=== PATIENT | female | born 1995 | race Caucasian/White ===

== ENCOUNTER 2017-10-16 13:11 | Inpatient (IN) ==
[2017-10-16] MEDS ORDERED: NALOXONE 0.4 MG/1 ML VIAL IVP PRN (17:58)
[2017-10-16] MEDS ORDERED: Nalbuphine Inj 20 MG/ML Ampule IVP PRN (17:58)
[2017-10-16] MEDS ORDERED: LIDOCAINE HCL 2 % 10 ML JELLY URO-JECT TOPICAL PRN (17:58)
[2017-10-16] MEDS ORDERED: CITRIC ACID/SODIUM CITRATE 30 ML CUP PO PRN (17:58)
[2017-10-16] MEDS ORDERED: Metoclopramide Inj 10 MG/2 ML VIAL IV PRN (17:58)
[2017-10-16] MEDS ORDERED: BUTORPHANOL TARTRATE 2 MG/1 ML VIAL IVP PRN (17:58)
[2017-10-16] MEDS ORDERED: METHYLERGONOVINE MALEATE 0.2 MG/1 ML VIAL IM PRN (17:58)
[2017-10-16] MEDS ORDERED: ePHEDrine Inj 5 MG in Normal Saline Flush 1 ML IVP PRN (17:58)
[2017-10-16] MEDS ORDERED: MISOPROSTOL 200 MCG TABLET RECTAL PRN (17:58)
[2017-10-16] MEDS ORDERED: ONDANSETRON 4 MG/2 ML VIAL IVP PRN (17:58)
[2017-10-16] MEDS ORDERED: CefOXitin Inj 2 GM in Sodium Chloride 0.9% 100 ML IV PRN (17:58)
[2017-10-16] MEDS ORDERED: fentaNYL Inj 100 MCG/2 ML VIAL IV PRN (17:58)
[2017-10-16] MEDS ORDERED: Phenylephrine Inj 50 MCG in Normal Saline Flush 0.5 ML IVP PRN (17:58)
[2017-10-16] MEDS ORDERED: OXYTOCIN 10 UNIT/1 ML IM PRN (17:58)
[2017-10-16] MEDS ORDERED: TERBUTALINE SULFATE 1 MG/1 ML SDV SUBCUT PRN (17:58)
[2017-10-16] MEDS ORDERED: CALCIUM CARBONATE 500 MG (TUMS) CHEWABLE TABLET PO PRN (17:58)
[2017-10-16] MEDS ORDERED: diphenhydrAMINE 50 MG/1 ML VIAL IVP PRN (17:58)
[2017-10-16] MEDS ORDERED: Naloxone Inj 0.01 MG in Normal Saline Flush 1 ML IVP PRN (17:58)
[2017-10-16] MEDS ORDERED: Carboprost Inj 250 MCG/ML AMP IM PRN (17:58)
[2017-10-16] MEDS ORDERED: LIDOCAINE W/ SODIUM BICARB 0.5 ML SYR SUBD PRN (17:58)
[2017-10-16] MEDS ORDERED: FAMOTIDINE 20 MG/2 ML VIAL IVP PRN ×2 (17:58)
[2017-10-16] MEDS ORDERED: Lidocaine 1% 10 MG/ML - 20 ML VIAL SUBCUT PRN (17:58)
[2017-10-16] MEDS ORDERED: Oxytocin 20 Units + LR 20 UNIT/1,000 ML BAG IV SCH ×2 (18:00→18:30)
[2017-10-16 18:34] LABS: Hematocrit [HCT] 36.8 % (37.0-47.0); Hemoglobin [HGB] 12.8 g/dL (12.0-16.0); MEAN CORPUSCULAR HEMOGLOBIN 29.2 PG (27-31); MEAN CORPUSCULAR HGB CONC 34.8 g/dL (33-37); MEAN PLATELET VOLUME 11.8 FL (7.4-12.2); RED BLOOD COUNT 4.38 10^6/uL (4.20-5.40)
[2017-10-16] MEDS: Lactated Ringers-OB Dept 1,000 ML PRIMARY IV SCH (18:51)
[2017-10-16] MEDS: ACETAMINOPHEN 325 MG TABLET PO PRN (20:34)
[2017-10-17] MEDS: Lactated Ringers-OB Dept 1,000 ML PRIMARY IV SCH ×2 (03:54→10:30)
[2017-10-17] MEDS: ACETAMINOPHEN 325 MG TABLET PO PRN (05:16)
--- NOTE | 2017-10-17 07:34 | OB.PROGRES ---
Interval History: The patient is a 22-year-old at 40 weeks gestation today who was admitted last night for induction of labor or augmentation of contractions. Please see my note below from earlier in the day yesterday. Overnight, the patient can feel some contractions nothing painful. The patient states that she has had headaches for 2 days that do go resolve. The patient thinks that it is sinus congestion. The patient states that about 3 months ago she had a similar headache intermittently for several days when she had an upper respiratory infection and sinus congestion. The patient had a headache yesterday when she presented to labor and delivery at [facility] with Tylenol. Last night she had a headache again which resolved with Tylenol but overnight the headache returned. Therefore, she did not sleep as well as she had hoped. Subjective: The patient is a 22-year-old at 39-6/7 weeks who called and spoke to the office nurse this morning and described perhaps early labor and just not feeling well. No gush of fluid. Positive movement. No bleeding. Occasional contractions. The patient was asked to go to labor and delivery. The patient states that she had a headache but drinking water this morning and Tylenol and labor and delivery allowed her headache to resolve completely. No abdominal pain. Some contractions felt. The patient states that her has gone well except for the first trimester when she had a subchorionic hemorrhage and some vaginal bleeding. One -hour Glucola was normal. Group B strep was negative. Past medical history noncontributory. No hypertension, no diabetes, no asthma. Past surgical history noncontributory for abdominal surgeries. Patient is allergic to penicillin. No tobacco, no alcohol, no drugs. Objective: Nontoxic appearing Abdomen is soft and nontender without guarding or rebound. Gravid. Cervix was 2-3/60/-2 cephalic. Membranes swept gently. Minimal blood on gloved fingers after completing this. Extremity with 1+ edema bilaterally. Labs with platelets 129,000. H&H 12 and 35.8. Renal function and liver function tests were normal. Category 1 heart rate tracing. Contractions about every 6-8 minutes. Assessment: IUP 39-6/7 weeks with gestational thrombocytopenia. Late limits last drawn about 2 months ago were 168,000 Latent labor The patient has had a cervical change from last week to this week from 1 cm to 2-3 cm. group B strep negative Patient is Rh- and did receive RhoGAM Blood pressure is normal. The patient believes that this baby is probably bigger than her previous child which was born at 38-1/2 weeks gestation Plan: I discussed the patient's mild gestational thrombocytopenia. I discussed that this can occur in . Her blood pressure is normal. Her labs otherwise are normal. I offered the patient admission with augmentation of her contractions with Pitocin. We discussed this at length. The patient stated that she would like this but would also like to consider going into labor spontaneously. I just spoke the patient again in the patient is still considering her options. The patient asked about coming back at around 2030 hrs. or 2100 hrs. after her significant other gets home from work at the [employer]. The nurse and I told the patient that that would be fine. The patient also could be admitted now and we would start the Pitocin now to help ripen the patient's cervix. The patient is currently considering her options. Objective - Cervical Exam Cervical Exam: 60/-2 cephalic [place]: Contractions every 2-4 minutes on 5 milliunits of Pitocin Heart Rate Interpretation Category: Category II (There was one deceleration to the 70s for 1 minute that the nurse thought perhaps was maternal. It is difficult to determine if it was the heart rate or maternal. Otherwise, heart rate accelerations are good.) - Labs CBC and BMP: 10/16/17 18:28 - Vital Signs Last Taken Vital Signs: Vital Signs - Last Taken Temperature 98.5 F 10/17/17 06:15 Pulse Rate 84 10/17/17 06:15 Respiratory Rate 18 10/17/17 06:15 Blood Pressure 124/69 10/17/17 06:15 Pulse Ox 98 10/17/17 06:15 - Additional Details Additional Details: Lungs clear to auscultation Heart regular rate and rhythm Abdomen is gravid and soft and nontender Reflexes are 2+ bilaterally patellar No clonus Assessment and Plan - Assessment / Plan Additional Assessment/Plan Details: Assessment: IUP 40 weeks gestation today. Patient was diagnosed with gestational thrombocytopenia stay with platelets 129,000 which last night on admission were 144,000. The patient had an elevated blood pressure on admission last night but the nurse believed that the patient was very anxious. All other blood pressures since then have been normal. The patient has had a headache for the past 2 days that resolves with Tylenol but then does return. I do not think that the patient has preeclampsia with severe signs or symptoms secondary to the headache since the patient's only blood pressure last night was elevated on admission but every other blood pressure has been normal. The patient did have some anxiety last night. The patient did have negative protein in her urine dip yesterday. Plan: Observe blood pressures very closely Obtain a gestational hypertension panel now Continue Pitocin which is currently at 5 milliunits but we'll continue to increase the Pitocin Consider AROM when the patient gets into a good labor pattern with Pitocin. I will discuss this with the physician on-call today as I will have to hand this patient off to the physician on-call a little later.
[2017-10-17 08:09] LABS: Hematocrit [HCT] 36.7 % (37.0-47.0); Hemoglobin [HGB] 12.6 g/dL (12.0-16.0); MEAN CORPUSCULAR HGB CONC 34.3 g/dL (33-37); MEAN CORPUSCULAR VOLUME 84.4 FL (81-99); MEAN PLATELET VOLUME 11.9 FL (7.4-12.2); RED BLOOD COUNT 4.35 10^6/uL (4.20-5.40)
[2017-10-17 08:27] LABS: BLOOD UREA NITROGEN 4 mg/dL (7-22); SERUM ALBUMIN 3.5 g/dL (3.5-4.8); Uric Acid 6.2 mg/dl (2.5-6.2)
[2017-10-17] MEDS ORDERED: Magnesium Sulfate 4gm (Premix) 4 GM/100 ML BAG IV ONE (09:28)
[2017-10-17] MEDS ORDERED: CALCIUM GLUCONATE 100 MG/1 ML - 10 ML IVP PRN ×2 (09:28→18:35)
[2017-10-17] MEDS ORDERED: Magnesium Sulfate (Premix) 20 GM/500 ML BAG IV SCH (09:30)
--- NOTE | 2017-10-17 09:47 | OB.PROGRES ---
Interval History: The patient states that her headache has returned significantly. The patient can also feel her contractions. Objective - Cervical Exam Cervical Exam: Deferred currently [place]: Contractions every 2-3 minutes on 6 milliunits of Pitocin. Heart Rate Interpretation Category: Category I - Labs CBC and BMP: 10/17/17 08:00 10/17/17 08:00 - Vital Signs Last Taken Vital Signs: Vital Signs - Last Taken Temperature 98.5 F 10/17/17 06:15 Pulse Rate 84 10/17/17 06:15 Respiratory Rate 18 10/17/17 06:15 Blood Pressure 124/69 10/17/17 06:15 Pulse Ox 98 10/17/17 06:15 - Additional Details Additional Details: Several blood pressures have been elevated in the mild range low 140s over low 90s. Assessment and Plan - Assessment / Plan Additional Assessment/Plan Details: IUP 40 weeks Gestational thrombocytopenia with normal liver function tests and normal renal function tests. Platelets are 143,000 this morning. This is very mild thrombocytopenia. However, now the patient's blood pressures are in the mild range. The patient may just have gestational hypertension but with the patient's headache that the patient has been having intermittently for the past 2 days, I could not rule out preeclampsia without symptoms of severe preeclampsia. The patient did have negative protein on her urine dip yesterday. With the new information with several blood pressures elevated in the mild range but with the patient's headache increasing even with Tylenol administer this morning, I will diagnosed the patient with preeclampsia with symptoms of severe preeclampsia but no signs of severe preeclampsia. Plan: Magnesium sulfate with 4 g bolus then 2 g per hour for seizure prophylaxis Continue Pitocin and observed for cervical change. Consider AROM with more cervical change or head descent Observe blood pressures carefully. Treat for blood pressures over 160/110. I discussed magnesium sulfate in detail with the patient and the patient expressed understanding with the current plan. We did discuss side effects. I do not expect magnesium sulfate toxicity with the or gram bolus and then 2 g per hour which is a fairly low dose but good seizure prophylaxis. We did discuss warm flushes, blurred vision, and feelings of decreased energy.
[2017-10-17] MEDS ORDERED: ePHEDrine Inj 50 MG/ML AMP ONE (10:22)
[2017-10-17] MEDS ORDERED: Fent/Bupiv 2mcg/0.0625% Epid 250 ML ONE (11:10)
[2017-10-17] MEDS ORDERED: LIDOCAINE MPF 2% - 5 ML (20 MG/1 ML) ONE ×2 (11:11→15:29)
[2017-10-17] MEDS ORDERED: fentaNYL 2 MCG/BUPIVACAINE 0.0625%/NS 0.9% 250 ML BAG EPIDURAL ONE ×2 (11:40→11:52)
[2017-10-17] MEDS ORDERED: Phenylephrine Inj 50 MCG in Normal Saline Flush 0.5 ML IVP PRN (11:41)
[2017-10-17] MEDS ORDERED: BUTORPHANOL TARTRATE 2 MG/1 ML VIAL IVP PRN (11:41)
[2017-10-17] MEDS ORDERED: ePHEDrine Inj 5 MG in Normal Saline Flush 1 ML IVP PRN (11:41)
[2017-10-17] MEDS ORDERED: Naloxone Inj 0.01 MG in Normal Saline Flush 1 ML IVP PRN (11:41)
[2017-10-17] MEDS ORDERED: diphenhydrAMINE 50 MG/1 ML VIAL IVP PRN ×2 (11:41→18:21)
[2017-10-17] MEDS ORDERED: Nalbuphine Inj 20 MG/ML Ampule IVP PRN ×2 (11:41→18:21)
[2017-10-17] MEDS ORDERED: NALOXONE 0.4 MG/1 ML VIAL IVP PRN (11:41)
--- NOTE | 2017-10-17 11:46 | CRNA.PROGR ---
Anesthesia Time - - Start date: 10/17/17 - Procedure/Recovery Time Anesthesia : Time In: 10:40 Anesthesia : Time Out: 17:15 - Other Weight: 122.742 kg Height: 5 ft 7 in Body Mass Index (BMI): 42.3 Physical Status: P3 (morbid obesity,preeclamptic, ) Anesthesia Type: Epidural
--- NOTE | 2017-10-17 11:51 | OB.PROGRES ---
Interval History: The patient received her epidural and she is more comfortable. The patient also received her magnesium sulfate bolus and she has warm Flushing and stated she definitely felt the magnesium sulfate. The patient is much more comfortable with the epidural. Objective - Cervical Exam Cervical Exam: 5/70/-2 cephalic and membranes palpated. [place]: Every 2-3 minutes Heart Rate Interpretation Category: Category I - Labs CBC and BMP: 10/17/17 08:00 10/17/17 08:00 Additional Lab Results: LDH was normal and uric acid was 6 - Vital Signs Last Taken Vital Signs: Vital Signs - Last Taken Temperature 98.5 F 10/17/17 06:15 Pulse Rate 84 10/17/17 06:15 Respiratory Rate 18 10/17/17 06:15 Blood Pressure 124/69 10/17/17 06:15 Pulse Ox 98 10/17/17 06:15 Assessment and Plan - Assessment / Plan Additional Assessment/Plan Details: Assessment: IUP 40 weeks with preeclampsia with symptoms of severe preeclampsia with headache. Labs normal except for patient with mild thrombocytopenia with platelets 143,000. Last blood pressure was 124/69. Patient did receive magnesium sulfate bolus and now 2 g per hour. Patient did receive epidural and she is much more comfortable. Plan: Continue to evaluate blood pressures. I offered patient AROM and nurses will let me know when they are ready to do this. Continue to observe closely
--- NOTE | 2017-10-17 11:52 | CRNA.PROCE ---
Central Neuraxis Block Placemt - - Safety Measures: Time Out Taken, Site Verified - - Type of Block: Epidural Reason for Block: Analgesia Moniters Used During Block: SPO2, NIBP Positioning: Sitting Skin Prep Used: Betadine (times 3) Draped: Yes Skin Infiltration - Enter Amount Used in Comment Field: 1% Xylocaine (mL): Yes ( 1.5) Spinal Needle Used: 18 Hustead 80 mm (Catheter threaded 4 cm. transient parasthesia Right hip. No pain with test dose.) Local Anesthetic - Enter Amount Used in Comment Field: 1.5 % Xylocaine with Epinephrine 1:200,000 (mL): Yes (4 ml) Number of Centimeters Catheter Threaded: 4 Bioclusive Dressing Applied: Yes (skin prep under all adhesive.) - - Additional Details: test dose at . Pt reports very slow change in sensorium r/t test dose. Additional 5 ml of PF lido at 1115 via epidural. Patient reports that feet are getting tingly. Does not feel contractions. Started infusion at 1123. See orders. Dosed epidural with 5 ml of 2% mpf lido at 1533 for reported increase in discomfort. Patient reported to be 8 cm by OB RN. Baby delivered vaginally around 1633. Repair of perineum completed around 1715. Anesthesia Time - Other Weight: 122.742 kg Height: 5 ft 7 in Body Mass Index (BMI): 42.3
--- NOTE | 2017-10-17 13:33 | OB.PROGRES ---
Interval History: The patient is comfortable and she got to rest or sleep for a while. The patient would like AROM. Epidural is working well. Headache is uncomfortable for patient. No Tylenol since 0 500 this morning Objective - Cervical Exam Cervical Exam: 5/-2. AROM with clear fluid Heart Rate Interpretation Category: Category I - Labs CBC and BMP: 10/17/17 08:00 10/17/17 08:00 - Vital Signs Last Taken Vital Signs: Vital Signs - Last Taken Temperature 98.5 F 10/17/17 06:15 Pulse Rate 87 10/17/17 11:52 Respiratory Rate 15 10/17/17 11:52 Blood Pressure 116/74 10/17/17 11:52 Pulse Ox 100 10/17/17 11:52 - Additional Details Additional Details: Blood pressures low 140s over 90s Assessment and Plan - Assessment / Plan Additional Assessment/Plan Details: IUP 40 weeks gestation with preeclampsia with symptoms of severe preeclampsia but blood pressures in mild range. Patient with headache and it has increased but blood pressures are not in severe range. Patient receiving magnesium sulfate for eclampsia/seizure prophylaxis Patient with mild thrombocytopenia with 144,000 platelets GBS negative AROM with clear fluid Patient delivered 6 plus pound baby last time. I do believe that this baby is larger. Plan: Pitocin was decreased by half after AROM. Will gradually increase Pitocin if contractions started to space out. Continue to observe blood pressures. Continue magnesium sulfate 2 g per hour Continue to evaluate for cervical change
[2017-10-17] MEDS ORDERED: ACETAMINOPHEN 500 MG TABLET PO PRN (13:34)
--- NOTE | 2017-10-17 14:15 | OB.PROGRES ---
Interval History: Patient comfortable Objective - Cervical Exam Cervical Exam: /-2. Anterior placenta by 20 week ultrasound Heart Rate Interpretation Category: Category II (Questionable subtle late decelerations versus early decelerations) - Labs CBC and BMP: 10/17/17 08:00 10/17/17 08:00 - Vital Signs Last Taken Vital Signs: Vital Signs - Last Taken Temperature 98.5 F 10/17/17 06:15 Pulse Rate 91 10/17/17 14:08 Respiratory Rate 20 10/17/17 14:08 Blood Pressure 139/79 10/17/17 14:08 Pulse Ox 98 10/17/17 14:08 Assessment and Plan - Assessment / Plan Additional Assessment/Plan Details: Assessment /plan : IUP 40 weeks. Questionable subtle late decelerations versus early decelerations. Patient receiving Pitocin. I spoke with the patient about an intrauterine pressure catheter. IUPC was placed. Seems to be functioning well. [place] units should be around 200. Pitocin will be adjusted for 200 [place] units.
--- NOTE | 2017-10-17 15:01 | OB.PROGRES ---
Interval History: The patient is starting to feel a little bit of discomfort with contractions. She has not hit her epidural pump button. She will push it. Objective - Cervical Exam Cervical Exam: 5-6/90/-2 cephalic initially. Membranes gently swept. Cervix 6/ 90/-2. Good scalp stimulation with heart rate with cervical check [place]: 110 [place] units. Pitocin was increased. Heart Rate Interpretation Category: Category II (There is good variability. Small accelerations. Excellent acceleration with scalp stimulation-pH at least 7.22) - Labs CBC and BMP: 10/17/17 08:00 10/17/17 08:00 - Vital Signs Last Taken Vital Signs: Vital Signs - Last Taken Temperature 98.5 F 10/17/17 06:15 Pulse Rate 91 10/17/17 14:08 Respiratory Rate 20 10/17/17 14:08 Blood Pressure 139/79 10/17/17 14:08 Pulse Ox 98 10/17/17 14:08 Assessment and Plan - Assessment / Plan Additional Assessment/Plan Details: Assessment: IUP [address] 110 [place] units. Pitocin currently increased to 5 milliunits. Again, the Pitocin was decreased from 6-3 milliunits after AROM. Cervix is 6 cm and 90% effaced. Good heart rate acceleration with scalp stimulation. PH at least 7.22. Magnesium sulfate for preeclampsia with symptoms of severe preeclampsia. Currently, the patient states her headache resolved with the last dose of Tylenol. Last blood pressure was 143/95. Group B strep negative The patient informs us that she did have slow dilation last from 6 cm to complete. Plan: Continue to observe for cervical dilation and blood pressures. Continue Pitocin Continue magnesium sulfate 2 g per hour Continue to observe her headache. I will informed the physician chief hydroelectric station operator-Dr. Cleveland about the patient so that I can handoff the patient to her. Patient aware of this.
[2017-10-17] MEDS ORDERED: CALCIUM CARBONATE 500 MG (TUMS) CHEWABLE TABLET PO PRN (18:21)
[2017-10-17] MEDS ORDERED: diphenhydrAMINE 25 MG CAPSULE PO PRN (18:21)
[2017-10-17] MEDS ORDERED: ONDANSETRON 4 MG/2 ML VIAL IVP PRN (18:21)
[2017-10-17] MEDS ORDERED: BENZOCAINE/MENTHOL SPRAY 56 GM BOTTLE TOPICAL PRN (18:21)
[2017-10-17] MEDS ORDERED: LANOLIN HPA 40 GM TUBE TOPICAL PRN (18:21)
[2017-10-17] MEDS ORDERED: Oxytocin 20 Units + LR 20 UNIT/1,000 ML BAG IV SCH (18:21)
[2017-10-17] MEDS ORDERED: HYDROcodone-APAP 5 MG -325 MG TABLET PO PRN (18:21)
[2017-10-17] MEDS ORDERED: GLYCERIN/WITCH HAZEL 1 BOX TOPICAL PRN (18:21)
[2017-10-17] MEDS ORDERED: IBUPROFEN 800 MG TABLET PO PRN (18:21)
[2017-10-17] MEDS ORDERED: ACETAMINOPHEN 325 MG TABLET PO PRN (18:21)
[2017-10-17] MEDS ORDERED: Ondansetron ODT Tab 4 MG TAB PO PRN (18:21)
[2017-10-17] MEDS ORDERED: LIDOCAINE HCL 2 % 10 ML JELLY URO-JECT TOPICAL PRN (18:21)
--- NOTE | 2017-10-17 18:33 | OB.DEL.SUM ---
Delivery Note Delivery Summary: 22 yo G2 now P2 admitted last night for labor augmentation at term. This morning she was started on magnesium for preeclampsia with severe feature of SANTANA. I was called at about 1600 as patient only had a lip and felt the urge to complete. After a short time of pushing, at 1630 she delivered via normal vaginal delivery a TAGA male infant in KHOI position over an intact perineum with epidural anesthesia. A single nuchal cord was reduced. A large gush of fluid was noted after delivery of the head, his shoulders and body delivered easily. Infant was placed on mom's abdomen, cord clamping was delayed only a short time as the was cyanotic with poor tone. The cord was doubly clamped and cut but the father. Her placenta delivered spontaneously, intact with 3-vessel cord at 1641. She had brisk bleeding at that time with a boggy uterus and was thus given 1000 mcg cytotec pv. She had 2 periurethral/labial lacerations on the L and one on the R that were repaired with 3-0 vicryl rapide after infiltration with lidocaine. EBL 400. Apgars 3,5,8. Mom tolerated delivery well, baby was a bit stunned from the rapid delivery and magnesium, he responded well to NIPPV. Will continue magnesium x24 hours after delivery. - Patient Problems (1) Vaginal delivery Current Visit: Yes Status: Acute Code(s): O80 - Encounter for full-term uncomplicated delivery
[2017-10-17] MEDS: Magnesium Sulfate (Premix) 20 GM/500 ML BAG IV SCH (22:23)
[2017-10-17] MEDS: DOCUSATE 100 MG CAPSULE PO SCH (23:10)
[2017-10-18] MEDS: Lactated Ringers-OB Dept 1,000 ML PRIMARY IV SCH (01:54)
[2017-10-18 03:22] VITALS: RESP 18
[2017-10-18 06:09] LABS: BLOOD UREA NITROGEN 3 mg/dL (7-22); SERUM ALBUMIN 2.6 g/dL (3.5-4.8)
[2017-10-18 06:10] LABS: Hemoglobin [HGB] 11.3 g/dL (12.0-16.0); MEAN CORPUSCULAR HEMOGLOBIN 30.1 PG (27-31); MEAN CORPUSCULAR HGB CONC 35.3 g/dL (33-37); MEAN CORPUSCULAR VOLUME 85.1 FL (81-99); MEAN PLATELET VOLUME 11.8 FL (7.4-12.2); RED BLOOD COUNT 3.76 10^6/uL (4.20-5.40)
[2017-10-18] MEDS: DOCUSATE 100 MG CAPSULE PO SCH (08:56)
[2017-10-18] MEDS ORDERED: Prenatal Multivitamin Tab 1 TAB TAB PO SCH (09:00)
[2017-10-18] MEDS: Magnesium Sulfate (Premix) 20 GM/500 ML BAG IV SCH (09:20)
[2017-10-18] MEDS ORDERED: RHO(D) IMMUNE GLOBULIN 1500 UNIT(300 mcg)SYRIN IM PRN (13:49)
[2017-10-18 16:59] VITALS: TEMP 98.1
--- NOTE | 2017-10-18 17:15 | CRNA.PROGR ---
Anesthesia Note - Progress Notes Anesthesia Progress Note: Post labor epidural 10/17/17. Pt cheerful today. Pleased with care. No headache now. Little backache. Magnesium off now. No apparent difficulties with epidural.
--- NOTE | 2017-10-18 18:00 | OB.PROGRES ---
Subjective Post Day: 1 Pain Management: PO [place] Catheter: No Lochia Color: Rubra/Red Small 10-25 ml Diet: Regular Feeding Method: Exculsively Ambulating: Yes Concerns / Additional Information: Patient has been on fluid restrictions 2/2 mag precautions, she is anxious to drink moer. She refused a catheter replacement last night, has been up ambulating. Good uop. BPs have been normal today. SANTANA is better today. Patient is feeling pretty good. Breast feeding relatively well. Objective - General General Appearance: POSITIVE: No Acute Distress, Cooperative - Cardiovacular Cardiovascular Exam: POSITIVE: RRR Edema: +1 Pedal Edema Extremities: Negative Jannette's - Bilaterally - Respiratory Respiratory Exam: POSITIVE: Clear to Auscultation - Bilaterally, Breathing Non Labored - Reflexes Clonus (indicate extremity in comment field): Absent Deep Tendon Reflex (indicate extremity in comment field): Dull/Diminished +1 - Abdomen Bowel Sounds: Present - Fundus/Lochia/Perineum Uterus Consistency: Firm Uterus Position: POSITIVE: Below Umbilicus Assesstment / Plan (1) Vaginal delivery Current Visit: Yes Status: Acute Support Text: 22 yo , PPD 1 Preeclampsia - plan to finish 24 hours of mag. Labs good today. SANTANA nearly resolved. BPs good. Pain well controlled Breast feeding Plans to do a mirena for contraception Received rhogam Possible discharge tonight if doing great off of mag, if not likely in the morning. F/u with Wen at 6 weeks pp
[2017-10-18 20:35] VITALS: BP 123/83; O2SAT 97
== END 2017-10-18 20:20 | disposition home or self-care (01) | DRG 774 ==
LOC: OBIP 18:14
PROVIDERS: ADMIT Obstetrics & Gynecology; ATTEND Obstetrics & Gynecology